=== PATIENT | male | born 1970 | race Two or more races ===

== ENCOUNTER 2021-03-18 08:48 | Day surgery (SDC) | payer OTHER ==
[~2021-03-18] VITALS: Ht 165.1 cm; Wt 81.6 kg
[2021-03-18] MEDS ORDERED: SODIUM CHLORIDE LOCK 10 ML ONE (08:57)
[2021-03-18 09:33] LABS: Basophils # (auto) 0.1 10 ^3/uL (0-0.2); Basophils % (auto) 1.3 % (0.0-2.0); Eosinophils # (auto) 0.1 10 ^3/uL (0-0.8); Eosinophils % (auto) 0.8 % (0.0-7.0); Hematocrit 44.7 % (41.0-53.0); Hemoglobin 15.6 g/dL (13.5-17.5); Lymphocytes # (auto) 4.3 10 ^3/uL (0.4-5.4); Lymphocytes % (auto) 38.9 % (10.0-50.0); Mean Corpuscular Hemoglobin 30.8 pg (28.0-32.0); Mean Corpuscular Volume 88.2 fL (80.0-100.0); Monocytes # (auto) 0.6 10 ^3/uL (0-1.3); Monocytes % (auto) 5.1 % (0.0-12.0); Neutrophils # (auto) 5.9 10 ^3/uL (1.6-8.6); Neutrophils % (auto) 53.9 % (37.0-80.0); Nucleated Red Blood Cells % 0.1 %; Red Blood Cells 5.07 10^6/uL (4.5-5.90); Red Cell Distribution Width 13.1 % (11.8-14.3)
[2021-03-18 09:44] LABS: INR 1.03 (0.9-1.15); Partial Thromboplastin Time 29.3 sec (23.0-31.2)
[2021-03-18] MEDS: MIDAZOLAM HCL 5 MG/ML-1ML VIAL ONE ×2 (11:01→11:04)
[2021-03-18] MEDS: fentaNYL CITRATE 100 MCG/2 ML VL ONE ×2 (11:01→11:04)
[2021-03-18] MEDS: diphenhdrAMINE HCL 50 MG/1 ML VL ONE ×2 (11:01→11:04)
[2021-03-18 11:45] VITALS: BP 109/65
== END 2021-03-18 12:20 | disposition home or self-care (01) ==
LOC: GI 08:48
PROVIDERS: ATTEND Internal Medicine Gastroenterology
DX: K62.5 Hemorrhage of anus and rectum (principal); K64.8 Other hemorrhoids; K57.30 Diverticulosis of large intestine without perforation or abscess without bleeding; Z98.890 Other specified postprocedural states; Z68.30 Body mass index [BMI] 30.0-30.9, adult
CPT/HCPCS: 36415; 45378; 85025; 85049; 85610; 85730; J1200; J2250; J3010; J7030; 99152